=== PATIENT | male | born 1965 | race Two or more races ===

== ENCOUNTER 2023-09-07 12:34 | Emergency (ER) | payer MEDICAID, OTHER ==
[~2023-09-07] VITALS: Ht 180.3 cm; Wt 109.2 kg
[2023-09-07] MEDS: MECLIZINE HCL 25 MG TAB PO ONE (14:11)
[2023-09-07] MEDS: cloNIDine HCL 0.1 MG TAB PO ONE (14:11)
[2023-09-07] MEDS: SODIUM CHLORIDE 0.9% 500 ML IVB ONE (14:11)
[2023-09-07 14:32] LABS: Basophils # (auto) 0.1 10 ^3/uL (0-0.2); Basophils % (auto) 0.7 % (0.0-2.0); Eosinophils # (auto) 0 10 ^3/uL (0-0.8); Eosinophils % (auto) 0.2 % (0.0-7.0); Hematocrit 49.3 % (41.0-53.0); Hemoglobin 16.5 g/dL (13.5-17.5); Lymphocytes # (auto) 0.9 10 ^3/uL (0.4-5.4); Lymphocytes % (auto) 9.3 % (10.0-50.0); Mean Corpuscular Hemoglobin 31.2 pg (28.0-32.0); Mean Corpuscular Hgb Conc. 33.4 g/dL (32.0-36.0); Mean Corpuscular Volume 93.4 fL (80.0-100.0); Monocytes # (auto) 0.4 10 ^3/uL (0-1.3); Monocytes % (auto) 4.4 % (0.0-12.0); Neutrophils # (auto) 8.1 10 ^3/uL (1.6-8.6); Neutrophils % (auto) 85.4 % (37.0-80.0); Nucleated Red Blood Cells % 0.4 %; Red Blood Cells 5.27 10^6/uL (4.5-5.90); Red Cell Distribution Width 13.5 % (11.8-14.3); White Blood Cell 9.4 10^3/uL (4.4-10.8)
[2023-09-07 15:13] LABS: Alanine Aminotransferase 38 U/L (7-40); Albumin 4.6 g/dL (3.2-4.8); Alkaline Phosphatase 92 U/L (46-116); Anion Gap 7 (5-15); Aspartate Aminotransferase 23 U/L (13-40); BUN/Creatinine Ratio 12.9 (10.0-20.0); Blood Urea Nitrogen 11 mg/dL (9-23); Calcium 9.3 mg/dL (8.7-10.4); Carbon Dioxide 24 mmol/L (20-30); Chloride 109 mmol/L (98-107); Glucose 142 mg/dL (74-106); Potassium 4.1 mmol/L (3.5-5.1); Sodium 140 mmol/L (136-145)
[2023-09-07 15:14] LABS: Bilirubin, Total 0.8 mg/dL (0.2-1.0); Total Protein 8.1 g/dL (5.7-8.2)
[2023-09-07] MEDS ORDERED: MECL25CH85 PO (16:24)
[2023-09-07] MEDS ORDERED: ATEN-60 PO (16:24)
[2023-09-07] MEDS ORDERED: OLME1TAB73 PO (16:24)
[2023-09-07 16:35] VITALS: BP 166/86; PULSE 90; RESP 16; TEMP 98.5; O2SAT 98
== END 2023-09-07 16:39 | disposition home or self-care (01) ==
LOC: ER 12:34
DX: R42 Dizziness and giddiness (principal); I10 Essential (primary) hypertension; R73.9 Hyperglycemia, unspecified; E78.5 Hyperlipidemia, unspecified; R07.89 Other chest pain
CPT/HCPCS: 36415; 71046; 80053; 83735; 85025; 93005; 99285; J8597

== ENCOUNTER 2023-12-15 12:16 | Emergency (ER) | payer MEDICAID ==
[~2023-12-15] VITALS: Ht 180.3 cm; Wt 98.0 kg
[~2023-12-15 12:16] MED LIST: ATEN-60 PO; MECL25CH85 PO; OLME40TA76 PO
[2023-12-15 12:25] VITALS: TEMP 97.7
[2023-12-15 12:32] VITALS: BP 146/92; RESP 16; O2SAT 98
[2023-12-15 12:36] VITALS: PULSE 52
[2023-12-15] MEDS ORDERED: MELO7.5T7 PO (14:22)
== END 2023-12-15 14:22 | disposition home or self-care (01) ==
LOC: ER 12:16
DX: R51.9 Headache, unspecified (principal); M54.6 Pain in thoracic spine; I10 Essential (primary) hypertension
CPT/HCPCS: 70450; 72070; 93005